=== PATIENT | female | born 1955 | race Caucasian/White ===

== ENCOUNTER → 2018-12-07 | Day surgery (SDC) | payer BC ==
[~2018-12-07] VITALS: Ht 160 cm; Wt 72.6 kg
[~2018-12-07] MED LIST: AMLODIPINE BESY10 MG PO; HYDROCHLOROTHIA25 M1 PO; NAPROSYN500 MG PO; NORCO 5-325 TA1 EACH PO; PREDNISONE20 M1 PO; PRILOSEC20 M1 PO; TOPROL XL50 M1 PO; VIBRAMYCIN100 MG PO
[2018-12-07 10:10] VITALS: BP 139/70
[2018-12-07 11:34] VITALS: BP 119/76
[2018-12-07 11:45] VITALS: BP 137/80
[2018-12-07 11:58] VITALS: BP 138/78
== END | disposition home or self-care (01) ==
LOC: SDC 12-02 11:00
DX: Z12.11 Encounter for screening for malignant neoplasm of colon (principal); K63.5 Polyp of colon; K29.50 Unspecified chronic gastritis without bleeding; I10 Essential (primary) hypertension; K21.9 Gastro-esophageal reflux disease without esophagitis; M19.90 Unspecified osteoarthritis, unspecified site; Z90.49 Acquired absence of other specified parts of digestive tract; Z90.710 Acquired absence of both cervix and uterus; Z98.890 Other specified postprocedural states; Z86.010 Personal history of colon polyps